=== PATIENT | female | born 1940 | race American Indian/Alaskan Native ===

== ENCOUNTER 2017-03-29 12:58 | Outpatient (CLI) | payer MEDICARE ==
--- NOTE | 2017-03-29 14:41 | Cat Scan Report ---
CT OF THE ABDOMEN AND PELVIS WITHOUT CONTRAST HISTORY: Flank pain. TECHNIQUE: Helical CT without contrast. Sagittal and coronal reformatted images. FINDINGS: Within the limits of a noncontrast exam, the abdominal and pelvic viscera are within normal limits. The liver, biliary system, pancreas, spleen, kidneys, adrenal glands and bladder are unremarkable. The gallbladder has been surgically removed. The bowel loops are normal caliber and wall thickness. Normal appendix. The aorta is normal caliber. No ascites, bulky adenopathy or inflammatory changes. Hysterectomy has been performed. Right hip replacement generates mild artifact in the pelvis. The lung bases are clear. Normal heart size. No suspicious bony lesion. A moderate hiatal hernia is identified. IMPRESSION: No nephrolithiasis or hydronephrosis is appreciated. Surgical changes as described. Hiatal hernia. No acute process detected.
== END 2017-03-29 12:59 | disposition home or self-care (01) ==
LOC: CT 12:58
PROVIDERS: ATTEND Urology
DX: K44.9 Diaphragmatic hernia without obstruction or gangrene (principal); Z90.49 Acquired absence of other specified parts of digestive tract; Z96.641 Presence of right artificial hip joint
CPT/HCPCS: 74176

== ENCOUNTER 2017-12-10 08:10 | Outpatient (CLI) | payer MEDICARE ==
--- NOTE | 2017-12-10 09:07 | Mammography Report ---
BILATERAL MAMMOGRAM: FINDINGS: The breasts are almost entirely fat (<25% glandular). No mass, distortion, suspicious calcification, or skin change is seen. No significant change compared to prior examination in March 2014. CAD was utilized. IMPRESSION: Negative mammogram. There is no mammographic evidence of malignancy. RECOMMENDATION: Follow-up per ACS guidelines. BI-RADS CATEGORY: 1 = Negative ACR BI-RADS MAMMOGRAPHIC CODES: 0 = Needs additional imaging evaluation; 1 = Negative; 2 = Benign; 3 = Probably benign; 4 = Suspicious; 5 = Malignant; 6 = Known biopsy-proven malignancy COMMENT: 1. Dense breast tissue, i.e., adenosis, fibrocystic changes, etc., may obscure an underlying neoplasm. 2. Approximately 10% of cancers are not detected with mammography. 3. A negative mammography report should not delay biopsy if a clinically suspicious mass is present. COMMENT: Patient follow-up letters are generated in [employer].
== END 2017-12-10 08:11 | disposition home or self-care (01) ==
LOC: MAMMO 08:10
PROVIDERS: ATTEND Internal Medicine
DX: Z12.31 Encounter for screening mammogram for malignant neoplasm of breast (principal)
CPT/HCPCS: 77067

== ENCOUNTER 2018-11-24 12:32 | Inpatient (IN) | payer MEDICARE ==
--- NOTE | 2018-11-24 12:48 | Emergency Department Report ---
Blank Doc - Documentation Documentation: pt was seen by PCP states she was having SOB sent to ED for evaluation states she has been feeling SOB for 2-3 weeks no cough no fever no CP PMHx of bronchitis PMHx of HTN, states she thinks she took her medication today but is not sure BP in triage 208/104
--- NOTE | 2018-11-24 13:42 | XRay Report ---
ROUTINE CHEST, TWO VIEWS: HISTORY: Shortness of breath. Borderline to mild cardiomegaly. Mild central pulmonary venous congestion is identified. The lungs are generally clear. No evidence for infiltrate, pleural effusion or pneumothorax. The bony structures are grossly intact. IMPRESSION: Borderline heart size. Mild central pulmonary venous congestion.
[2018-11-24 13:44] LABS: Basophils % (Auto) 0.7 % (0.0-1.8); Eosinophils # (Auto) 0.1 K/mm3 (0.0-0.4); Eosinophils % (Auto) 1.8 % (0.0-4.3); Hematocrit 43.5 % (30.3-42.9); Hemoglobin 14.6 gm/dl (10.1-14.3); Lymphocytes % (Auto) 24.2 % (13.4-35.0); Mean Corpuscular HGB Conc 34 % (30-34); Mean Corpuscular Volume 101 fl (79-97); Monocytes # (Auto) 0.3 K/mm3 (0.0-0.8); Monocytes % (Auto) 8.3 % (0.0-7.3); Platelet Count 239 K/mm3 (140-440); Red Blood Count 4.29 M/mm3 (3.65-5.03); Red Cell Distribution Width 13.5 % (13.2-15.2)
[2018-11-24 14:07] LABS: BUN/Creatinine Ratio 13; Blood Urea Nitrogen 8 mg/dL (7-17); Calcium 9.7 mg/dL (8.4-10.2); Hemolysis Index 13
[2018-11-24] MEDS ORDERED: NORMODYNE IV ONE (15:16)
[2018-11-24] MEDS ORDERED: LASIX IV ONE (15:16)
--- NOTE | 2018-11-24 15:23 | Emergency Department Report ---
ED General Adult HPI - General Chief complaint: High BP Stated complaint: CAROLYN Time Seen by Provider: 11/24/18 12:46 Source: patient, EMS Mode of arrival: Wheelchair Limitations: No Limitations - History of Present Illness Initial comments: Patient is 78 years old female with history of hypertension. Patient presented to the ER complaining of 3 week history of shortness of breath. Patient found to have a blood pressure of 234/126. Patient denied any chest pain. Patient denied headache, weakness numbness or tingling sensation. Patient denied any fever, chills, neck pain, abdominal pain, nausea or vomiting. -: week(s) - Related Data Allergies Allergy/AdvReac Type Severity Reaction Status Date / Time pentazocine [From Talwin] AdvReac Swelling Verified 11/24/18 12:39 ED Review of Systems ROS: Stated complaint: CAROLYN Other details as noted in HPI Comment: All other systems reviewed and negative Constitutional: denies: chills, fever Respiratory: orthopnea, shortness of breath, SOB with exertion, SOB at rest. denies: cough, wheezing Cardiovascular: denies: chest pain, palpitations Gastrointestinal: denies: abdominal pain, nausea, vomiting, diarrhea, constipation, hematemesis, melena, hematochezia Musculoskeletal: denies: back pain Neurological: denies: headache, weakness, numbness, paresthesias, confusion, abnormal gait ED Past Medical Hx - Past Medical History Hx Hypertension: Yes - Surgical History Additional Surgical History: KNEE AND HIP REPLACEMENT - Social History Smoking Status: Never Smoker ED Physical Exam - General Limitations: No Limitations General appearance: alert, in no apparent distress, anxious - Head Head exam: Present: atraumatic, normocephalic, normal inspection - Eye Eye exam: Present: normal appearance, PERRL - ENT ENT exam: Present: normal exam, normal orophraynx, mucous membranes moist - Neck Neck exam: Present: normal inspection, full ROM. Absent: tenderness, meningismus, lymphadenopathy, thyromegaly - Respiratory Respiratory exam: Present: normal lung sounds bilaterally. Absent: respiratory distress, wheezes, rales, rhonchi, chest wall tenderness, accessory muscle use, decreased breath sounds, prolonged expiratory - Cardiovascular Cardiovascular Exam: Present: regular rate, normal rhythm, normal heart sounds - GI/Abdominal GI/Abdominal exam: Present: soft, normal bowel sounds. Absent: distended, tenderness, guarding, rebound, rigid, organomegaly, mass, bruit, pulsatile mass, hernia - Extremities Exam Extremities exam: Present: normal inspection, full ROM, normal capillary refill. Absent: pedal edema, calf tenderness - Back Exam Back exam: Present: normal inspection, full ROM. Absent: CVA tenderness (R), CV A tenderness (L), muscle spasm, paraspinal tenderness, vertebral tenderness - Neurological Exam Neurological exam: Present: alert, oriented X3, CN II-XII intact, normal gait, reflexes normal - Skin Skin exam: Present: warm, intact, normal color ED Course Vital Signs 11/24/18 11/24/18 11/24/18 12:59 15:09 15:15 Temperature 98.1 F Pulse Rate 72 81 Respiratory 16 18 Rate Blood Pressure 120/70 249/127 Blood Pressure [Right] O2 Sat by Pulse 98 88 100 Oximetry 11/24/18 11/24/18 11/24/18 15:20 15:31 15:45 Temperature Pulse Rate 77 68 Respiratory 16 9 L 13 Rate Blood Pressure 249/127 216/96 Blood Pressure [Right] O2 Sat by Pulse 98 100 Oximetry 11/24/18 11/24/18 11/24/18 16:01 16:15 16:31 Temperature Pulse Rate 64 66 74 Respiratory 23 18 Rate Blood Pressure 216/96 184/94 184/94 Blood Pressure [Right] O2 Sat by Pulse 100 98 Oximetry 11/24/18 11/24/18 11/24/18 17:01 17:31 18:15 Temperature Pulse Rate 63 66 Respiratory 25 H 25 H Rate Blood Pressure 186/97 188/91 191/86 Blood Pressure [Right] O2 Sat by Pulse 99 100 90 Oximetry 11/24/18 11/24/18 11/24/18 18:31 18:35 18:45 Temperature Pulse Rate 71 66 82 Respiratory 12 12 17 Rate Blood Pressure 188/91 209/99 164/76 Blood Pressure 209/99 [Right] O2 Sat by Pulse 99 99 100 Oximetry ED Medical Decision Making - Lab Data Result diagrams: 11/24/18 13:31 11/24/18 13:31 - EKG Data -: EKG Interpreted by Nm EKG shows normal: sinus rhythm Rate: normal - EKG Data Interpretation: no acute changes - Radiology Data Radiology results: report reviewed Chest x-ray showed cardiomegaly and pulmonary congestion. - Medical Decision Making Patient is 78 years old female with history of hypertension. Patient presented to the ER complaining of 3 week history of shortness of breath. Patient found to have a blood pressure of 234/126. Patient denied any chest pain. Patient denied headache, weakness numbness or tingling sensation. Patient denied any fever, chills, neck pain, abdominal pain, nausea or vomiting. Patient received labetalol 20 mg IV and Lasix 40 IV with minimal improvement in the low pressure. Patient received hydralazine. Labs reviewed and is un remarkable. CTA chest is negative for pulmonary embolism. I discussed the patient is Dr. Thorpe, he agreed to admit the patient to medical service for further management. Critical Care Time: Yes Critical care time in (mins) excluding proc time.: 30 Critical care attestation.: If time is entered above; I have spent that time in minutes in the direct care of this critically ill patient, excluding procedure time. ED Disposition Clinical Impression: Shortness of breath, Hypertensive emergency Disposition: DC-09 OP ADMIT IP TO THIS HOSP Is pt being admited?: Yes Condition: Stable Instructions: Hypertension (ED) Referrals: JIMMY PENA MD [Primary Care Provider] - 3-5 Days
[2018-11-24 16:40] LABS: Partial Thromboplastin Time 27.6 Sec. (24.2-36.6)
[2018-11-24] MEDS ORDERED: APRESOLINE IV ONE (18:27)
--- NOTE | 2018-11-24 18:42 | Cat Scan Report ---
PROCEDURE: CT ANGIO CHEST TECHNIQUE: CT examination of the chest after IV contrast. Multiplanar angiographic image post processing. CT DOSE LENGTH PRODUCT: 713.5 mGycm HISTORY: SOB, ELEVATED D-DIMER COMPARISONS: Abdomen CT 03/29/2017 . FINDINGS: Slight cardiomegaly without pericardial effusion. Slight coronary artery calcification. Intact normal caliber thoracic aorta with moderate calcified plaque. Large hiatal hernia containing abdominal fat and approximately 50% of the stomach. The visualized pulmonary arteries are diffusely patent bilaterally. There is no filling defect to sug gest PE. Nonspecific 18 mm left adrenal nodule. Average CT density is 49 with IV contrast. Consider follow-up adrenal CT without IV contrast to further characterize Degenerative change in the regional skeleton. No acute fracture. No pneumothorax or pleural effusion. No focal pulmonary consolidation. Stable slight pulmonary scarri ng along the fissures. IMPRESSION: 18 mm nonspecific left adrenal nodule. Consider follow-up thin section adrenal CT without IV contrast to further characterize Slight cardiomegaly and coronary artery calcification Large hiatal hernia containing abdominal fat and approximately 50% of the stomach Stable slight pulmonary scarring along the anterior inferior fissures No CT evidence of pulmonary arterial embolic disease This document is electronically signed by Tab Anaya MD., November 24 2018 06:41:06 PM ET
[2018-11-24] MEDS ORDERED: PROAIR IH PRN (20:21)
[2018-11-24] MEDS ORDERED: APRESOLINE IV PRN (20:23)
[2018-11-24] MEDS ORDERED: SODIUM CHLORIDE FLUSH SYRINGE 10 ML IV PRN (20:47)
[2018-11-24] MEDS ORDERED: PROVENTIL IH PRN ×2 (20:47→20:51)
[2018-11-24] MEDS ORDERED: TYLENOL PO PRN (20:47)
[2018-11-24] MEDS ORDERED: ZOFRAN IV PRN (20:47)
[2018-11-24] MEDS ORDERED: K-DUR PO ONE (20:49)
[2018-11-24] MEDS ORDERED: K-DUR PO SCH (21:00)
[2018-11-24] MEDS ORDERED: NACL 0.9% 1000 ML 1,000 ML IV SCH (21:00)
--- NOTE | 2018-11-24 21:49 | History and Physical Report ---
History of Present Illness Date of examination: 11/24/18 Date of admission: 11/24/18 19:41 Chief complaint: Hypertensive urgency, shortness of breath History of present illness: 78-year-old -I[place] female with history of hypertension, asthma, GERD who presents to [facility] with complaints of shortness of breath for the past 3 weeks. Patient states that she has been experiencing dyspnea at rest and with exertion for the past 3 weeks. Patient stated that she has not taken her blood pressure medicines for the last "couple" of days. She attributes this to a misunderstanding with her PCP. She thought that she was instructed not to take the medicine, because it was on recall. Denies cough, sputum production, hemoptysis, fever, chills, visual disturbances, gait dysfunction, diaphoresis, or chest pain Past History Past Medical History: hypertension, other (asthma,) Past Surgical History: Other (knee surgery, hip replacement) Social history: , lives with family Family history: no significant family history Medications and Allergies Allergies Allergy/AdvReac Type Severity Reaction Status Date / Time pentazocine [From Talwin] AdvReac Swelling Verified 11/24/18 12:39 Home Medications Medication Instructions Recorded Confirmed Last Taken Type ALBUTEROL Inhaler (OR & NICU) 2 puff IH BID PRN 11/24/18 11/24/18 Unknown History [Proair] Fesoterodine Fumarate [Toviaz] 4 mg PO DAILY 11/24/18 11/24/18 Unknown History Losartan [Cozaar] 50 mg PO DAILY 11/24/18 11/24/18 Unknown History Pantoprazole [Protonix] 40 mg PO DAILY 11/24/18 11/24/18 Unknown History Potassium Chloride [K-Dur] 10 meq PO DAILY 11/24/18 11/24/18 Unknown History amLODIPine [Norvasc] 10 mg PO DAILY 11/24/18 11/24/18 Unknown History hydroCHLOROthiazide [HCTZ] 25 mg PO DAILY 11/24/18 11/24/18 Unknown History Active Meds: Active Medications Acetaminophen (Tylenol) 650 mg PO Q4H PRN PRN Reason: Pain MILD(1-3)/Fever >100.5/GOETZ Albuterol (Proventil) 2.5 mg IH Q3HRT PRN PRN Reason: Shortness Of Breath Amlodipine Besylate (Norvasc) 10 mg PO DAILY [facility] Hydralazine HCl (Apresoline) 10 mg IV Q3H PRN PRN Reason: Blood Pressure Hydrochlorothiazide (Hctz) 25 mg PO DAILY [facility] Sodium Chloride (Nacl 0.9% 1000 Ml) 1,000 mls @ 100 mls/hr IV DIRECT COLLIN Stop: 11/25/18 11:00 Losartan Potassium (Cozaar) 100 mg PO DAILY [facility] Miscellaneous Medication (Fesoterodine Fumarate [Toviaz]) 4 mg PO DAILY [facility] Ondansetron HCl (Zofran) 4 mg IV Q8H PRN PRN Reason: Nausea And Vomiting Pantoprazole Sodium (Protonix) 40 mg PO DAILY [facility] Potassium Chloride (K-Dur) 10 meq PO DAILY [facility] Sodium Chloride (Sodium Chloride Flush Syringe 10 Ml) 10 ml IV BID [facility] Sodium Chloride (Sodium Chloride Flush Syringe 10 Ml) 10 ml IV PRN PRN PRN Reason: LINE FLUSH Review of Systems All systems: negative (reviewed an additional remarkable complaints except as noted below) Cardiovascular: orthopnea, shortness of breath, dyspnea on exertion Respiratory: shortness of breath, dyspnea on exertion Exam - Physical Exam Narrative exam: Physical exam General appearance: Present: Mild distress, alert and oriented 3, older adult female - EENT Eyes: Present: PERRL, EOM intact ENT: hearing intact, normal dentition - Neck Neck: Present: supple, normal ROM - Respiratory Respiratory effort: Slightly labored with occasional pursed lip breathing Respiratory: bilateral: diminished (bases) - Cardiovascular Heart rate: 71 (bpm) Rhythm: Sinus rhythm regular Heart Sounds: Present: S1 & S2. Absent: rub, click - Extremities Extremities: no ischemia, pulses intact, - Peripheral Assessment Peripheral Pulses: within normal limits - Abdominal General gastrointestinal: soft, non-tender, normal bowel sounds - Integumentary Integumentary: Present: warm, dry - Musculoskeletal Musculoskeletal: Able to move all extremities - Neurological Neurological: CNII-XII intact - Psychiatric Psychiatric: cooperative - Constitutional Vitals: Temp Pulse Resp BP Pulse Ox 98.3 F 80 18 169/83 99 11/24/18 21:02 11/24/18 21:02 11/24/18 21:02 11/24/18 21:02 11/24/18 21:02 Results - Labs CBC & Chem 7: 11/24/18 13:31 11/24/18 13:31 Labs: Laboratory Last Values WBC 4.0 K/mm3 (4.5-11.0) L 11/24/18 13:31 RBC 4.29 M/mm3 (3.65-5.03) 11/24/18 13:31 Hgb 14.6 gm/dl (10.1-14.3) H 11/24/18 13:31 Hct 43.5 % (30.3-42.9) H 11/24/18 13:31 MCV 101 fl (79-97) H 11/24/18 13:31 MCH 34 pg (28-32) H 11/24/18 13:31 MCHC 34 % (30-34) 11/24/18 13:31 RDW 13.5 % (13.2-15.2) 11/24/18 13:31 Plt Count 239 K/mm3 (140-440) 11/24/18 13:31 Lymph % (Auto) 24.2 % (13.4-35.0) 11/24/18 13:31 [place] % (Auto) 8.3 % (0.0-7.3) H 11/24/18 13:31 Eos % (Auto) 1.8 % (0.0-4.3) 11/24/18 13:31 Baso % (Auto) 0.7 % (0.0-1.8) 11/24/18 13:31 Lymph # 1.0 K/mm3 (1.2-5.4) L 11/24/18 13:31 [place] # 0.3 K/mm3 (0.0-0.8) 11/24/18 13:31 Eos # 0.1 K/mm3 (0.0-0.4) 11/24/18 13:31 Baso # 0.0 K/mm3 (0.0-0.1) 11/24/18 13:31 Seg Neutrophils % 65.0 % (40.0-70.0) 11/24/18 13:31 Seg Neutrophils # 2.6 K/mm3 (1.8-7.7) 11/24/18 13:31 PT 13.8 Sec. (12.2-14.9) 11/24/18 15:47 INR 1.00 (0.87-1.13) 11/24/18 15:47 APTT 27.6 Sec. (24.2-36.6) 11/24/18 15:47 234.10 ng/mlDDU (0-234) H 11/24/18 15:47 Sodium 142 mmol/L (137-145) 11/24/18 13:31 Potassium 3.5 mmol/L (3.6-5.0) L 11/24/18 13:31 Chloride 98.0 mmol/L (98-107) 11/24/18 13:31 Carbon Dioxide 28 mmol/L (22-30) 11/24/18 13:31 20 mmol/L 11/24/18 13:31 BUN 8 mg/dL (7-17) 11/24/18 13:31 0.6 mg/dL (0.7-1.2) L 11/24/18 13:31 Estimated GFR > 60 ml/min 11/24/18 13:31 13 % 11/24/18 13:31 Glucose 105 mg/dL (65-100) H 11/24/18 13:31 Calcium 9.7 mg/dL (8.4-10.2) 11/24/18 13:31 NT-Pro-B Natriuret Pep 211.2 pg/mL (0-900) 11/24/18 13:31 - Imaging and Cardiology EKG: image reviewed (sinus rhythm 71 bpm) Chest x-ray: report reviewed (Borderline heart size. Mild central pulmonary venous congestion. ), image reviewed Imaging and Cardiology: CTA: No CT evidence of pulmonary arterial embolic disease Assessment and Plan Assessment and plan: 78-year-old -I[place] female with history of hypertension, asthma, GERD who presents to [facility] ED with complaints of shortness of breath for the past 3 weeks. Upon arrival to our facility patient's blood pressure was profoundly elevated at 234/136. She was given IV labetalol 20 mg. Her blood pressure re main elevated at 216/96 she was given hydralazine 20 mg IV and was responsive. CTA chest negative for PE. CXR showed mild pulmonary congestion and she was given Lasix 40 mg IV. At baseline patient does not require supplemental oxygen. Currently she is on 3 L nasal cannula with saturation of 98%. Hypertensive urgency Dehydration Dyspnea Asthma Hypokalemia History of GERD Plan: Continue supportive care Continuous telemetry monitoring Monitor BP Resume home Norvasc 10 mg daily, HCTZ 25 mg daily, Increase Losartan to 100 mg daily Start Coreg 12.5 mg twice a day IV hydralazine when necessary Continue Protonix Monitor electrolytes Daily potassium replacement Gentle hydration NS @100 ml/hr Echocardiogram pending Continue supplemental oxygen as needed Albuterol when necessary DVT PPX on Heparin and SCD's Advance Directives: No VTE prophylaxis?: Chemical Plan of care discussed with patient/family: Yes
[2018-11-24] MEDS: NORVASC PO SCH (22:48)
[2018-11-24] MEDS: HEPARIN SUB-Q SCH (22:48)
[2018-11-24] MEDS: COZAAR PO SCH (22:49)
[2018-11-24] MEDS: HCTZ PO SCH (22:50)
[2018-11-24] MEDS: PROTONIX PO SCH (22:50)
[2018-11-24] MEDS: SODIUM CHLORIDE FLUSH SYRINGE 10 ML IV SCH (22:51)
[2018-11-24] MEDS: FESOTERODINE FUMARATE 4 MG PO SCH (22:58)
[2018-11-25] MEDS: COREG PO SCH ×2 (00:39→10:19)
[2018-11-25 06:40] LABS: Basophils % (Auto) 0.6 % (0.0-1.8); Eosinophils # (Auto) 0.1 K/mm3 (0.0-0.4); Eosinophils % (Auto) 1.8 % (0.0-4.3); Hematocrit 35.4 % (30.3-42.9); Hemoglobin 11.9 gm/dl (10.1-14.3); Lymphocytes # (Auto) 0.7 K/mm3 (1.2-5.4); Lymphocytes % (Auto) 17.1 % (13.4-35.0); Mean Corpuscular HGB Conc 34 % (30-34); Mean Corpuscular Volume 102 fl (79-97); Monocytes # (Auto) 0.5 K/mm3 (0.0-0.8); Monocytes % (Auto) 12.8 % (0.0-7.3); Platelet Count 222 K/mm3 (140-440); Red Blood Count 3.46 M/mm3 (3.65-5.03); Red Cell Distribution Width 13.7 % (13.2-15.2)
[2018-11-25 07:26] LABS: BUN/Creatinine Ratio 13; Blood Urea Nitrogen 9 mg/dL (7-17); Hemolysis Index 3
[2018-11-25 08:53] VITALS: BP 135/67
[2018-11-25] MEDS ORDERED: K-DUR PO SCH (10:00)
--- NOTE | 2018-11-25 10:07 | Discharge Summary ---
Providers - Providers Date of Admission: 11/24/18 19:41 Date of discharge: 11/25/18 Attending physician: RAVINDRA POOL MD Primary care physician: JIMMY PENA Hospitalization Reason for admission: hypertensive urgency, asthma Condition: Stable Pertinent studies: Chest CTA was done; negative for PE Hospital course: 78-year-old -Italian female with history of hypertension, asthma, GERD who presents to [facility] ED with complaints of shortness of breath for the past 3 weeks. Patient states that she has been experiencing dyspnea at rest and with exertion for the past 3 weeks. Patient stated that she has not taken her blood pressure medicines for the last "couple" of days. She attributes this to a misunderstanding with her PCP. She thought that she was instructed not to take the medicine, because it was on recall. Denies cough, sputum production, hemoptysis, fever, chills, visual disturbances, gait dysfunction, diaphoresis, or chest pain. Blood pressures emergency department was 234/126. Patient was admitted to the floor or hypertensive urgency and was initially treated with IV blood pressure medications later with PO and BP was controlled. When I evaluated her in the morning patient didn't have any shortness of breath, chest pain. On examination no wheezing or edema. Patient is hemodynamically stable. Patient was discharged to home with advice to continue her medications. Disposition: TO HOME OR SELFCARE Time spent for discharge: 32 minutes - Discharge Diagnoses (1) Hypertensive emergency Status: Acute (2) Shortness of breath Status: Acute Core Measure Documentation - Palliative Care Palliative Care/ Comfort Measures: Not Applicable - Core Measures Any of the following diagnoses?: none Exam - Physical Exam Narrative exam: Not in cardiopulmonary distress. The patient is obese. Vital signs as documented. Head exam is unremarkable. No scleral icterus . Neck is without jugular venous distension, thyromegaly, or carotid bruits. Lungs are clear to auscultation. Cardiac exam reveals regular rate and Rhythm. First and second heart sounds normal. No murmurs, rubs or gallops. Abdominal exam reveals normal bowel sounds, no masses, no organomegaly and no aortic enlargement. Extremities are nonedematous and both femoral and pedal pulses are normal. 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 No focal weakness. - Constitutional Vitals: Temp Pulse Resp BP Pulse Ox 98.0 F 69 24 135/67 94 11/25/18 03:56 06/07/19 08:12 11/25/18 08:12 11/25/18 08:12 11/25/18 08:12 Plan Activity: no restrictions Weight Bearing Status: Full Weight Bearing Diet: low salt Follow up with: JIMMY PENA MD [Primary Care Provider] - 3-5 Days
[2018-11-25] MEDS: HCTZ PO SCH (10:19)
[2018-11-25] MEDS: NORVASC PO SCH (10:19)
[2018-11-25] MEDS: PROTONIX PO SCH (10:19)
[2018-11-25] MEDS: COZAAR PO SCH (10:19)
[2018-11-25] MEDS: HEPARIN SUB-Q SCH (10:20)
[2018-11-25] MEDS: SODIUM CHLORIDE FLUSH SYRINGE 10 ML IV SCH (10:20)
[2018-11-25] MEDS: FESOTERODINE FUMARATE 4 MG PO SCH (10:20)
== END 2018-11-25 12:00 | disposition home or self-care (01) | DRG 305 ==
LOC: ED 12:32 → 4A 19:41
PROVIDERS: ADMIT Internal Medicine; ATTEND Internal Medicine
DX: I16.1 Hypertensive emergency (principal); E87.6 Hypokalemia; J45.909 Unspecified asthma, uncomplicated; K21.9 Gastro-esophageal reflux disease without esophagitis; E86.0 Dehydration; I10 Essential (primary) hypertension; Z79.899 Other long term (current) drug therapy
CPT/HCPCS: 36415; 71046; 71275; 80048; 83880; 85025; 85379; 85610; 85730; 93005; 93010; G0378; J0360; J1644; J1940; J3246; J7030; Q9967

== ENCOUNTER 2019-08-21 12:29 | Outpatient (CLI) | payer MEDICARE ==
--- NOTE | 2019-08-21 14:02 | XRay Report ---
CHEST 2 VIEWS INDICATION: ASTHMA WITH ACUTE EXACERBATION. COMPARISON: 11/24/2018 FINDINGS: Support devices: None. Heart: Mild cardiomegaly unchanged since the last exam Pulmonary vasculature: Mild prominence of the upper lobe pulmonary vessels. Lungs/pleura: No acute air space or interstitial disease. Mild left lower lobe scar with stable mild elevation of the left hemidiaphragm. No pneumothorax. Additional findings: None. IMPRESSION: 1. No acute findings. 2. No CHF or pneumonia. Signer Name: Dwight Victor MD Signed: 08/21/2019 1:57 PM Workstation Name: [id number]
== END 2019-08-21 12:30 | disposition home or self-care (01) ==
LOC: XRAY 12:29
PROVIDERS: ATTEND Internal Medicine
DX: I51.7 Cardiomegaly (principal); J45.998 Other asthma
CPT/HCPCS: 71046

== ENCOUNTER 2021-01-27 08:46 | Outpatient (CLI) | payer MEDICARE ==
[2021-01-27 09:40] LABS: Blood Urea Nitrogen 20 mg/dL (7-17)
--- NOTE | 2021-01-27 10:54 | Cat Scan Report ---
CTA CHEST WITH IV CONTRAST INDICATION: CHEST PAIN. TECHNIQUE: Axial CT images were obtained through the chest after injection of IV contrast. 3 plane MIP reconstru ctions were produced. All CT scans at this location are performed using CT dose reduction for ALARA b y means of automated exposure control. COMPARISON: CTA 09/16/2019 FINDINGS: Pulmonary Arteries: No pulmonary emboli. Thoracic Aorta: No acute abnormality. Atherosclerotic calcification is again noted. Heart: Moderate coronary artery calcification is again noted. Lungs: No acute air space or interstitial disease. Pleura: No pleural effusion. No pneumothorax. Lymph Nodes: No significant adenopathy. Additional Findings: Large hiatal hernia with intrathoracic stomach again noted. Upper Abdomen: No acute findings. Left adrenal nodule is unchanged. Skeletal Structures: No significant osseous abnormality. IMPRESSION: 1. No CT evidence for pulmonary embolism. 2. No acute findings. 3. Incidental findings as above. Signer Name: Chandan Urbina MD Signed: 01/27/2021 10:50 AM Workstation Name: [id number]
== END 2021-01-27 08:47 | disposition home or self-care (01) ==
LOC: CT 08:46
PROVIDERS: ATTEND Internal Medicine Critical Care Medicine
DX: R06.02 Shortness of breath (principal); I25.10 Atherosclerotic heart disease of native coronary artery without angina pectoris; K44.9 Diaphragmatic hernia without obstruction or gangrene; D86.9 Sarcoidosis, unspecified; R07.9 Chest pain, unspecified; R09.02 Hypoxemia; J44.9 Chronic obstructive pulmonary disease, unspecified
CPT/HCPCS: 36415; 71275; 82565; 84520; Q9967

== ENCOUNTER 2021-07-14 14:32 | Inpatient (IN) | payer MEDICARE ==
--- NOTE | 2021-07-14 15:31 | Emergency Department Report ---
HPI - General Chief Complaint: Dyspnea/Respdistress Time Seen by Provider: 07/14/21 15:06 - HPI HPI: Room 24 The patient is a 80-year-old female present with a chief complaint of shortness of breath. The patient states she has exhibited shortness of breath and dyspnea on exertion for months. Patient states she has a rare cough. Patient admits to orthopnea times "years.". Patient also admits to bilateral lower extremity edema for which she takes "a fluid pill" but denies having history of congestive heart failure. Patient has a history of sarcoidosis and states she is on 2 L O2 nasal cannula as needed at home. Patient states she has been vaccinated against Covid including her booster. Patient denies chest pain, fever or nausea/vomiting. ED Past Medical Hx - Past Medical History Hx Hypertension: Yes Hx GERD: Yes Additional medical history: Sarcoidosis, venous stasis ulcer - Surgical History Hx Cholecystectomy: Yes (1993) Additional Surgical History: Hernia surgery 1994 hysterectomy 1980, right hip replacement 1989, right hip revision, total left knee replacement 2012 - Family History Family history: no significant - Social History Smoking Status: Never Smoker Substance Use Type: None (Denies illicit drug use), Alcohol (Occasional) - Medications Home Medications: Home Medications Medication Instructions Recorded Confirmed Last Taken Type Albuterol Mdi (or & Nicu Only) 2 puff IH BID PRN 11/24/18 11/24/18 Unknown History [ProAir HFA Inhaler] Fesoterodine Fumarate [Toviaz] 4 mg PO DAILY 11/24/18 11/24/18 Unknown History Losartan [Cozaar] 50 mg PO DAILY 11/24/18 11/24/18 Unknown History Pantoprazole [Protonix TAB] 40 mg PO DAILY 11/24/18 11/24/18 Unknown History Potassium Chloride [K-Dur] 10 meq PO DAILY 11/24/18 11/24/18 Unknown History amLODIPine 10 mg PO DAILY 11/24/18 11/24/18 Unknown History hydroCHLOROthiazide [HCTZ] 25 mg PO DAILY 11/24/18 11/24/18 Unknown History Albuterol Mdi (or & Nicu Only) 2 puff IH Q4HR PRN #1 inh 09/16/19 Unknown Rx [ProAir HFA Inhaler] Inhaler, Assist Devices [Space 1 each MC PRN PRN #1 spacer 09/16/19 Unknown Rx Chamber Plus] Prednisone [predniSONE 10 mg 10 mg PO .TAPER #1 tab.ds.pk 09/16/19 Unknown Rx (6-Day Pack, 21 Tabs)] ED Review of Systems ROS: Stated complaint: SHORTNESS OF BREATH/CHEST PAIN Other details as noted in HPI Constitutional: denies: fever Eyes: denies: eye pain ENT: denies: throat pain Respiratory: orthopnea, shortness of breath, SOB with exertion Cardiovascular: dyspnea on exertion, orthopnea. denies: chest pain Endocrine: no symptoms reported Gastrointestinal: denies: abdominal pain, nausea, vomiting Genitourinary: denies: dysuria Musculoskeletal: denies: back pain Neurological: denies: headache Physical Exam - Physical Exam Vital Signs: Vital Signs 07/14/21 07/14/21 07/14/21 14:39 14:45 15:01 Pulse Rate 84 85 84 Respiratory 14 12 15 Rate Blood Pressure 195/89 231/104 O2 Sat by Pulse 94 92 97 Oximetry Physical Exam: GENERAL: The patient is well-developed well-nourished female lying on stretcher not appearing to be in acute. [] HEENT: Normocephalic. Atraumatic. Extraocular motions are intact. Patient has moist mucous membranes. NECK: Supple. Trachea midline CHEST/LUNGS: Coarse breath sounds. There is no respiratory distress noted. HEART/CARDIOVASCULAR: Regular. There is no tachycardia. There is no gallop rub or murmur. ABDOMEN: Abdomen is soft, nontender. Patient has normal bowel sounds. There is no abdominal distention. SKIN: There is no rash. There is 1-2+ bilateral lower extremity pitting edema. There is no diaphoresis. NEURO: The patient is awake, alert, and oriented. The patient is cooperative. The patient has no focal neurologic deficits. The patient has normal speech. GCS 15 MUSCULOSKELETAL: There is no evidence of acute injury. ED Course Vital Signs 07/14/21 07/14/21 07/14/21 14:39 14:45 15:01 Pulse Rate 84 85 84 Respiratory 14 12 15 Rate Blood Pressure 195/89 231/104 O2 Sat by Pulse 94 92 97 Oximetry ED Medical Decision Making - Lab Data Result diagrams: 07/14/21 15:50 07/14/21 15:50 - EKG Data -: EKG Interpreted by Me EKG shows normal: sinus rhythm Rate: normal - EKG Data When compared to previous EKG there are: previous EKG unavailable Interpretation: other (No ischemic changes seen) - Radiology Data Radiology results: report reviewed (Chest x-ray), image reviewed (Chest x-ray) interpreted by me: Chest x-ray-no definite focal infiltrates, no pneumothorax [facility] [address] [place] [address] XRay Report Signed Patient: OSCAR CAM MR#: [id number] 8 : 1940 Acct:[id number] Age/Sex: 80 / F ADM Date: 07/14/21 Loc: ED Attending Dr: Ordering Physician: MELIZA SCHERER MD Date of Service: 07/14/21 Procedure(s): XR chest 1V ap Accession Number(s): [id number] cc: MELIZA SCHERER MD Fluoro Time In Minutes: CHEST 1 VIEW 07/14/2021 3:12 PM INDICATION / CLINICAL INFORMATION: Dyspn ea on exertion. COMPARISON: 09/15/2019 FINDINGS: SUPPORT DEVICES: None. HEART / MEDIASTINUM: No significant abnormality. LUNGS / PLEURA: No significant pulmonary or pleural abnormality. No pneumothorax. ADDITIONAL FINDINGS: No significant additional findings. IMPRESSION: 1. No acute findings. Signer Name: Juan Martinez DO Signed: 07/14/2021 4:15 PM Workstation Name: [id number] Transcribed By: LOKI Dictated By: JUAN MARTINEZ DO Electronically Authenticated By: JUAN MARTINEZ DO Signed Date/Time: 07/14/211614 DD/ 14 TD/TT: Print Cancel - Medical Decision Making Patient tachypneic and desats to 90% on room air when walking. Will admit for further management - Differential Diagnosis CHF, sarcoidosis, pulmonary edema, restrictive lung disease, symptomatic an Critical care attestation.: If time is entered above; I have spent that time in minutes in the direct care of this critically ill patient, excluding procedure time. ED Disposition Clinical Impression: Shortness of breath, Dyspnea on exertion, Hypoxia Disposition: ADMITTED INPATIENT Is pt being admited?: Yes Does the pt Need Aspirin: No Condition: Fair Time of Disposition: 18:06 (Hospitalist called (Dr. Thorpe))
--- NOTE | 2021-07-14 16:20 | XRay Report ---
CHEST 1 VIEW 07/14/2021 3:12 PM INDICATION / CLINICAL INFORMATION: Dyspnea on exertion. COMPARISON: 09/15/2019 FINDINGS: SUPPORT DEVICES: None. HEART / MEDIASTINUM: No significant abnormality. LUNGS / PLEURA: No significant pulmonary or pleural abnormality. No pneumothorax. ADDITIONAL FINDINGS: No significant additional findings. IMPRESSION: 1. No acute findings. Signer Name: Juan Hernandez DO Signed: 07/14/2021 4:15 PM Workstation Name: [id number]
[2021-07-14 16:43] LABS: Basophils % (Auto) 1.3 % (0.0-1.8); Eosinophils # (Auto) 0.1 K/mm3 (0.0-0.4); Eosinophils % (Auto) 2.7 % (0.0-4.3); Hematocrit 28.3 % (30.3-42.9); Hemoglobin 8.9 gm/dl (10.1-14.3); Lymphocytes # (Auto) 0.7 K/mm3 (1.2-5.4); Lymphocytes % (Auto) 22.7 % (13.4-35.0); Mean Corpuscular HGB Conc 31 % (30-34); Mean Corpuscular Volume 89 fl (79-97); Monocytes # (Auto) 0.4 K/mm3 (0.0-0.8); Monocytes % (Auto) 13.2 % (0.0-7.3); Platelet Count 251 K/mm3 (140-440); Red Blood Count 3.17 M/mm3 (3.65-5.03); Red Cell Distribution Width 15.8 % (13.2-15.2)
[2021-07-14] MEDS ORDERED: FUROSEMIDE 40 MG/4 ML INJ IV ONE (17:11)
[2021-07-14] MEDS ORDERED: cloNIDine 0.1 MG TAB PO ONE (17:14)
[2021-07-14 17:15] LABS: Alanine Aminotransferase 7 units/L (7-56); Albumin 4.3 g/dL (3.9-5); Blood Urea Nitrogen 12 mg/dL (7-17); Calcium 9.9 mg/dL (8.4-10.2); Hemolysis Index 11
[2021-07-14 17:16] LABS: BUN/Creatinine Ratio 17
[2021-07-14] MEDS ORDERED: IPRATROPIUM/ALBUTEROL SULFATE 3 ML AMPUL.NEB IH ONE (18:06)
--- NOTE | 2021-07-14 22:09 | History and Physical Report ---
History of Present Illness Date of examination: 07/14/21 Date of admission: Chief complaint: Shortness of breath for 1 day History of present illness: 80-year-old female comes in for increasing shortness of breath. Shortness of breath and dyspnea on exertion for months. Patient also admits to orthopnea. Patient also has bilateral lower extremity swelling. Patient has history of sarcoidosis. Denies CHF. Patient is on 2 L of nasal cannula oxygen at home. Patient has been vaccinated against Covid including a booster. No fever or chills. In the emergency room saturations were low blood improved with oxygen supplementation. - Past Medical History --Hypertension: Yes --GERD: Yes --Additional medical history: Sarcoidosis, venous stasis ulcer - Surgical History --Cholecystectomy: Yes (1993) --Additional Surgical History: Hernia surgery 1994 hysterectomy 1980, right hip replacement 1989, right hip revision, total left knee replacement 2012 - Family History --Family history: no significant - Social History --Smoking Status: Never Smoker --Substance Use Type: None (Denies illicit drug use), Alcohol (Occasional) - Medications --Home Medications: Home Medications Medication Instructions Recorded Confirmed Last Taken Type Albuterol Mdi (or & Nicu Only) 2 puff IH BID PRN 11/24/18 11/24/18 Unknown History [ProAir HFA Inhaler] Fesoterodine Fumarate [Toviaz] 4 mg PO DAILY 11/24/18 11/24/18 Unknown History Losartan [Cozaar] 50 mg PO DAILY 11/24/18 11/24/18 Unknown History Pantoprazole [Protonix TAB] 40 mg PO DAILY 11/24/18 11/24/18 Unknown History Potassium Chloride [K-Dur] 10 meq PO DAILY 11/24/18 11/24/18 Unknown History amLODIPine 10 mg PO DAILY 11/24/18 11/24/18 Unknown History hydroCHLOROthiazide [HCTZ] 25 mg PO DAILY 11/24/18 11/24/18 Unknown History Albuterol Mdi (or & Nicu Only) 2 puff IH Q4HR PRN #1 inh 09/16/19 Unknown Rx [ProAir HFA Inhaler] Inhaler, Assist Devices [Space 1 each MC PRN PRN #1 spacer 09/16/19 Unknown Rx Chamber Plus] Prednisone [predniSONE 10 mg 10 mg PO .TAPER #1 tab.ds.pk 09/16/19 Unknown Rx (6-Day Pack, 21 Tabs)] Review of Systems ROS: Stated complaint: SHORTNESS OF BREATH/CHEST PAIN Other details as noted in HPI Constitutional: denies: fever Eyes: denies: eye pain ENT: denies: throat pain Respiratory: orthopnea, shortness of breath, SOB with exertion Cardiovascular: dyspnea on exertion, orthopnea. denies: chest pain Endocrine: no symptoms reported Gastrointestinal: denies: abdominal pain, nausea, vomiting Genitourinary: denies: dysuria Musculoskeletal: denies: back pain Neurological: denies: headache Medications and Allergies Allergies Allergy/AdvReac Type Severity Reaction Status Date / Time pentazocine [From Viri] AdvReac Swelling Verified 11/24/18 12:39 Home Medications Medication Instructions Recorded Confirmed Last Taken Type Albuterol Mdi (or & Nicu Only) 2 puff IH BID PRN 11/24/18 11/24/18 Unknown History [ProAir HFA Inhaler] Fesoterodine Fumarate [Toviaz] 4 mg PO DAILY 11/24/18 11/24/18 Unknown History Losartan [Cozaar] 50 mg PO DAILY 11/24/18 11/24/18 Unknown History Pantoprazole [Protonix TAB] 40 mg PO DAILY 11/24/18 11/24/18 Unknown History Potassium Chloride [K-Dur] 10 meq PO DAILY 11/24/18 11/24/18 Unknown History amLODIPine 10 mg PO DAILY 11/24/18 11/24/18 Unknown History hydroCHLOROthiazide [HCTZ] 25 mg PO DAILY 11/24/18 11/24/18 Unknown History Albuterol Mdi (or & Nicu Only) 2 puff IH Q4HR PRN #1 inh 09/16/19 Unknown Rx [ProAir HFA Inhaler] Inhaler, Assist Devices [Space 1 each MC PRN PRN #1 spacer 09/16/19 Unknown Rx Chamber Plus] Prednisone [predniSONE 10 mg 10 mg PO .TAPER #1 tab.ds.pk 09/16/19 Unknown Rx (6-Day Pack, 21 Tabs)] Exam - Constitutional Vitals: Temp Pulse Resp BP Pulse Ox 98.7 F 85 12 169/72 98 07/14/21 18:44 07/14/21 18:43 07/14/21 16:45 07/14/21 18:43 07/14/21 16:45 General appearance: Present: mild distress, well-nourished - EENT Eyes: Present: PERRL ENT: hearing intact, clear oral mucosa - Neck Neck: Present: supple, normal ROM - Respiratory Respiratory effort: normal Respiratory: bilateral: CTA - Cardiovascular Heart rate: 78 Rhythm: regular Heart Sounds: Present: S1 & S2. Absent: rub, click - Extremities Extremities: pulses symmetrical, No edema Peripheral Pulses: within normal limits - Abdominal General gastrointestinal: Present: soft, non-tender, non-distended, normal bowel sounds Female genitourinary: Present: normal - Integumentary Integumentary: Present: clear, warm, dry - Musculoskeletal Musculoskeletal: gait normal, strength equal bilaterally - Psychiatric Psychiatric: appropriate mood/affect, intact judgment & insight - Neurologic Neurologic: CNII-XII intact, moves all extremities HEART Score - HEART Score Troponin: Troponin T < 0.010 ng/mL (0.00-0.029) 07/14/21 15:50 Results - Labs CBC & Chem 7: 07/15/21 04:01 07/15/21 04:01 Labs: Laboratory Last Values WBC 3.2 K/mm3 (4.5-11.0) L 07/14/21 15:50 RBC 3.17 M/mm3 (3.65-5.03) L 07/14/21 15:50 Hgb 8.9 gm/dl (10.1-14.3) L 07/14/21 15:50 Hct 28.3 % (30.3-42.9) L 07/14/21 15:50 MCV 89 fl (79-97) 07/14/21 15:50 MCH 28 pg (28-32) 07/14/21 15:50 MCHC 31 % (30-34) 07/14/21 15:50 RDW 15.8 % (13.2-15.2) H 07/14/21 15:50 Plt Count 251 K/mm3 (140-440) 07/14/21 15:50 Lymph % (Auto) 22.7 % (13.4-35.0) 07/14/21 15:50 [place] % (Auto) 13.2 % (0.0-7.3) H 07/14/21 15:50 Eos % (Auto) 2.7 % (0.0-4.3) 07/14/21 15:50 Baso % (Auto) 1.3 % (0.0-1.8) 07/14/21 15:50 Lymph # (Auto) 0.7 K/mm3 (1.2-5.4) L 07/14/21 15:50 [place] # (Auto) 0.4 K/mm3 (0.0-0.8) 07/14/21 15:50 Eos # (Auto) 0.1 K/mm3 (0.0-0.4) 07/14/21 15:50 Baso # (Auto) 0.0 K/mm3 (0.0-0.1) 07/14/21 15:50 Seg Neutrophils % 60.1 % (40.0-70.0) 07/14/21 15:50 Seg Neutrophils # 1.9 K/mm3 (1.8-7.7) 07/14/21 15:50 Sodium 136 mmol/L (137-145) L 07/14/21 15:50 Potassium 4.9 mmol/L (3.6-5.0) 07/14/21 15:50 Chloride 93.9 mmol/L (98-107) L 07/14/21 15:50 Carbon Dioxide 28 mmol/L (22-30) 07/14/21 15:50 Anion Gap 19 mmol/L 07/14/21 15:50 BUN 12 mg/dL (7-17) 07/14/21 15:50 Creatinine 0.7 mg/dL (0.6-1.2) 07/14/21 15:50 Estimated GFR > 60 ml/min 07/14/21 15:50 BUN/Creatinine Ratio 17 % 07/14/21 15:50 Glucose 90 mg/dL (65-100) 07/14/21 15:50 Calcium 9.9 mg/dL (8.4-10.2) 07/14/21 15:50 Total Bilirubin 0.20 mg/dL (0.1-1.2) 07/14/21 15:50 AST 15 units/L (5-40) 07/14/21 15:50 ALT 7 units/L (7-56) 07/14/21 15:50 Alkaline Phosphatase 62 units/L (35-129) 07/14/21 15:50 Total Creatine Kinase 46 units/L (30-135) 07/14/21 15:50 CK-MB (CK-2) 2.0 ng/mL (0.0-4.0) 07/14/21 15:50 CK-MB (CK-2) Rel Index 4.3 (0-4) H 07/14/21 15:50 Troponin T < 0.010 ng/mL (0.00-0.029) 07/14/21 15:50 NT-Pro-B Natriuret Pep 102.6 pg/mL (0-900) 07/14/21 15:50 Total Protein 7.8 g/dL (6.3-8.2) 07/14/21 15:50 Albumin 4.3 g/dL (3.9-5) 07/14/21 15:50 Albumin/Globulin Ratio 1.2 % 07/14/21 15:50 - Imaging and Cardiology Chest x-ray: report reviewed CT scan - chest: report reviewed Imaging and Cardiology: Chest x-ray No acute findings CT of the chest Labs evaluate intrathoracic stomach Small areas of interstitial nodularity and interstitial density Right middle lobe. These findings appear similar and unchanged since January 2021. A follow-up in 6 months to 1 year could be performed today to document stability of nodules. No focal consolidation. 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 Patient is fully followed. Patient acknowledged understanding and agreement with care plan. +30 minutes.,
[2021-07-14] MEDS ORDERED: ALBUTEROL 8.5 GM MDI INHALATION IH PRN (22:11)
[2021-07-14] MEDS ORDERED: ONDANSETRON 4 MG/2 ML INJ IV PRN (22:13)
[2021-07-14] MEDS ORDERED: oxyCODONE /ACETAMINOPHEN 5-325MG TAB PO PRN (22:13)
[2021-07-14] MEDS ORDERED: METOCLOPRAMIDE 10 MG/2 ML INJ IV PRN (22:13)
[2021-07-14] MEDS ORDERED: ACETAMINOPHEN 325 MG TAB PO PRN (22:13)
[2021-07-14] MEDS ORDERED: IPRATROPIUM/ALBUTEROL SULFATE 3 ML AMPUL.NEB IH PRN (22:19)
--- NOTE | 2021-07-14 23:13 | Cat Scan Report ---
CT CHEST WITH CONTRAST INDICATION / CLINICAL INFORMATION: Dyspnea. TECHNIQUE: Axial CT images were obtained through the chest after IV contrast. All CT scans at this location are performed using CT dose reduction for ALARA by means of automated exposure control. COMPARISON: 01/27/2021 FINDINGS: There is a small areas of interstitial nodularity and interstitial thickening within the lingula, rig ht middle lobe. A few these areas of mild rounded contour and density measuring up to 5 mm. There is a large hiatal hernia with intrathoracic stomach again noted. Atherosclerotic changes seen throughout the aorta and coronary vessels. No dominant adenopathy is seen. Visualized portions of the upper abd omen appear normal. IMPRESSION: 1. Large hiatal hernia with intrathoracic stomach. 2. Small areas of interstitial nodularity and interstitial density in the lingula and right middle lo be. These findings appear similar and unchanged since January 2021. A follow-up in 6 months to one julee de jesus could be performed to document stability of nodules. No focal consolidation. Signer Name: Luke Hayden MD Signed: 07/14/2021 11:08 PM Workstation Name: [id number]
[2021-07-15 05:20] LABS: Hematocrit 27.4 % (30.3-42.9); Hemoglobin 8.4 gm/dl (10.1-14.3); Mean Corpuscular HGB Conc 31 % (30-34); Mean Corpuscular Volume 90 fl (79-97); Platelet Count 253 K/mm3 (140-440); Red Blood Count 3.05 M/mm3 (3.65-5.03); Red Cell Distribution Width 15.9 % (13.2-15.2)
[2021-07-15 05:48] LABS: Alanine Aminotransferase 6 units/L (7-56); Albumin 4.2 g/dL (3.9-5); BUN/Creatinine Ratio 16; Blood Urea Nitrogen 11 mg/dL (7-17); Calcium 9.7 mg/dL (8.4-10.2); Hemolysis Index 0
[2021-07-15 06:50] LABS: Basophils % (Manual) 0 % (0.0-1.8); Total Cells Counted 100
[2021-07-15 06:51] LABS: Hypochromasia 2+; Platelet Estimate Consistent w Auto
--- NOTE | 2021-07-15 08:00 | Progress Note ---
Assessment and Plan Assessment and plan: -- Acute respiratory failure with hypoxia Current Visit: Yes Status: Acute Oxygen supplementation for now Possible effects of sarcoidosis Rule out CHF BNP is normal --Acute exacerbation of bronchial asthma; Continue supplemental oxygen, titrate O2 sats to more than 90% Nebulizers, IV steroids, inhalation steroids and supportive care --h/o Sarcoidosis Current Visit: Yes Status: Chronic Continue prednisone Pulmonary consult --Possible CHF (congestive heart failure) Current Visit: Yes Status: Chronic Patient has no history of CHF , no lung congestion , Normal proBNP , follow echocardiogram for ejection fraction And RV and LV functions Continue low-dose Lasix --Anemia Current Visit: Yes Status: Chronic No history of GI bleeding, check stool for occult blood Closely monitor H&H --DVT prophylaxis Current Visit: Yes Status: Acute On anticoagulation GI prophylaxis --Full CODE STATUS --Advance care planning Current Visit: Yes Status: Acute Disease education conducted, care plan discussed, diagnosis. Patient is fully followed. Patient acknowledged understanding and agreement with care plan. +30 minutes., Hospitalist Physical - Constitutional Vitals: Temp Pulse Resp BP Pulse Ox 98.7 F 74 16 158/71 99 07/14/21 18:44 07/15/21 07:01 07/15/21 07:01 07/15/21 07:01 07/15/21 07:01 General appearance: Present: mild distress, well-nourished HEART Score - HEART Score Troponin: Troponin T < 0.010 ng/mL (0.00-0.029) 07/14/21 15:50 Results - Labs CBC & Chem 7: 07/15/21 04:01 07/15/21 04:01 Labs: Laboratory Last Values WBC 3.4 K/mm3 (4.5-11.0) L 07/15/21 04:01 RBC 3.05 M/mm3 (3.65-5.03) L 07/15/21 04:01 Hgb 8.4 gm/dl (10.1-14.3) L 07/15/21 04:01 Hct 27.4 % (30.3-42.9) L 07/15/21 04:01 MCV 90 fl (79-97) 07/15/21 04:01 MCH 28 pg (28-32) 07/15/21 04:01 MCHC 31 % (30-34) 07/15/21 04:01 RDW 15.9 % (13.2-15.2) H 07/15/21 04:01 Plt Count 253 K/mm3 (140-440) 07/15/21 04:01 Lymph % (Auto) 22.7 % (13.4-35.0) 07/14/21 15:50 Marshall % (Auto) Plastics Nurse 07/15/21 04:01 Eos % (Auto) 2.7 % (0.0-4.3) 07/14/21 15:50 Baso % (Auto) 1.3 % (0.0-1.8) 07/14/21 15:50 Lymph # (Auto) 0.7 K/mm3 (1.2-5.4) L 07/14/21 15:50 [place] # (Auto) 0.4 K/mm3 (0.0-0.8) 07/14/21 15:50 Eos # (Auto) 0.1 K/mm3 (0.0-0.4) 07/14/21 15:50 Baso # (Auto) 0.0 K/mm3 (0.0-0.1) 07/14/21 15:50 Add Manual Diff Complete 07/15/21 04:01 Total Counted 100 07/15/21 04:01 Seg Neutrophils % 60.1 % (40.0-70.0) 07/14/21 15:50 Seg Neuts % (Manual) 69.0 % (40.0-70.0) 07/15/21 04:01 Band Neutrophils % 0 % 07/15/21 04:01 Lymphocytes % (Manual) 24.0 % (13.4-35.0) 07/15/21 04:01 Reactive Lymphs % (Man) 0 % 07/15/21 04:01 Monocytes % (Manual) 5.0 % (0.0-7.3) 07/15/21 04:01 Eosinophils % (Manual) 2.0 % (0.0-4.3) 07/15/21 04:01 Basophils % (Manual) 0 % (0.0-1.8) 07/15/21 04:01 Metamyelocytes % 0 % 07/15/21 04:01 Myelocytes % 0 % 07/15/21 04:01 Promyelocytes % 0 % 07/15/21 04:01 Blast Cells % 0 % 07/15/21 04:01 Nucleated RBC % Not Reportable 07/15/21 04:01 Seg Neutrophils # 1.9 K/mm3 (1.8-7.7) 07/14/21 15:50 Seg Neutrophils # Man 2.3 K/mm3 (1.8-7.7) 07/15/21 04:01 Band Neutrophils # 0.0 K/mm3 07/15/21 04:01 Lymphocytes # (Manual) 0.8 K/mm3 (1.2-5.4) L 07/15/21 04:01 Abs React Lymphs (Man) 0.0 K/mm3 07/15/21 04:01 Monocytes # (Manual) 0.2 K/mm3 (0.0-0.8) 07/15/21 04:01 Eosinophils # (Manual) 0.1 K/mm3 (0.0-0.4) 07/15/21 04:01 Basophils # (Manual) 0.0 K/mm3 (0.0-0.1) 07/15/21 04:01 Metamyelocytes # 0.0 K/mm3 07/15/21 04:01 Myelocytes # 0.0 K/mm3 07/15/21 04:01 Promyelocytes # 0.0 K/mm3 07/15/21 04:01 Blast Cells # 0.0 K/mm3 07/15/21 04:01 WBC Morphology Not Reportable 07/15/21 04:01 Hypersegmented Neuts Not Reportable 07/15/21 04:01 Hyposegmented Neuts Not Reportable 07/15/21 04:01 Hypogranular Neuts Not Reportable 07/15/21 04:01 Smudge Cells Not Reportable 07/15/21 04:01 Toxic Granulation Not Reportable 07/15/21 04:01 Toxic Vacuolation Not Reportable 07/15/21 04:01 Dohle Bodies Not Reportable 07/15/21 04:01 Pelger-Huet Anomaly Not Reportable 07/15/21 04:01 Thaddeus Rods Not Reportable 07/15/21 04:01 Platelet Estimate Consistent w auto 07/15/21 04:01 Clumped Platelets Not Reportable 07/15/21 04:01 Plt Clumps, EDTA Not Reportable 07/15/21 04:01 Large Platelets Not Reportable 07/15/21 04:01 Giant Platelets Not Reportable 07/15/21 04:01 Platelet Satelliting Not Reportable 07/15/21 04:01 Plt Morphology Comment Not Reportable 07/15/21 04:01 RBC Morphology Not Reportable 07/15/21 04:01 Dimorphic RBCs Not Reportable 07/15/21 04:01 Polychromasia Not Reportable 07/15/21 04:01 Hypochromasia 2+ 07/15/21 04:01 Poikilocytosis Not Reportable 07/15/21 04:01 Anisocytosis Not Reportable 07/15/21 04:01 Microcytosis Not Reportable 07/15/21 04:01 Macrocytosis Not Reportable 07/15/21 04:01 Spherocytes Not Reportable 07/15/21 04:01 Pappenheimer Bodies Not Reportable 07/15/21 04:01 Sickle Cells Not Reportable 07/15/21 04:01 Target Cells Not Reportable 07/15/21 04:01 Tear Drop Cells Not Reportable 07/15/21 04:01 Ovalocytes Not Reportable 07/15/21 04:01 Helmet Cells Not Reportable 07/15/21 04:01 Helm-[place]ie Bodies Not Reportable 07/15/21 04:01 [place] Rings Not Reportable 07/15/21 04:01 Sujatha Cells Not Reportable 07/15/21 04:01 Bite Cells Not Reportable 07/15/21 04:01 Crenated Cell Not Reportable 07/15/21 04:01 Elliptocytes Not Reportable 07/15/21 04:01 Acanthocytes (Spur) Not Reportable 07/15/21 04:01 Rouleaux Not Reportable 07/15/21 04:01 Hemoglobin C Crystals Not Reportable 07/15/21 04:01 Schistocytes Not Reportable 07/15/21 04:01 Malaria parasites Not Reportable 07/15/21 04:01 Liban Bodies Not Reportable 07/15/21 04:01 Hem Pathologist Commnt No 07/15/21 04:01 Sodium 136 mmol/L (137-145) L 07/15/21 04:01 Potassium 4.3 mmol/L (3.6-5.0) 07/15/21 04:01 Chloride 93.1 mmol/L (98-107) L 07/15/21 04:01 Carbon Dioxide 32 mmol/L (22-30) H 07/15/21 04:01 Anion Gap 15 mmol/L 07/15/21 04:01 BUN 11 mg/dL (7-17) 07/15/21 04:01 Creatinine 0.7 mg/dL (0.6-1.2) 07/15/21 04:01 Estimated GFR > 60 ml/min 07/15/21 04:01 BUN/Creatinine Ratio 16 % 07/15/21 04:01 Glucose 97 mg/dL (65-100) 07/15/21 04:01 Calcium 9.7 mg/dL (8.4-10.2) 07/15/21 04:01 Total Bilirubin 0.40 mg/dL (0.1-1.2) 07/15/21 04:01 AST 14 units/L (5-40) 07/15/21 04:01 ALT 6 units/L (7-56) L 07/15/21 04:01 Alkaline Phosphatase 60 units/L (35-129) 07/15/21 04:01 Total Creatine Kinase 46 units/L (30-135) 07/14/21 15:50 CK-MB (CK-2) 2.0 ng/mL (0.0-4.0) 07/14/21 15:50 CK-MB (CK-2) Rel Index 4.3 (0-4) H 07/14/21 15:50 Troponin T < 0.010 ng/mL (0.00-0.029) 07/14/21 15:50 NT-Pro-B Natriuret Pep 102.6 pg/mL (0-900) 07/14/21 15:50 Total Protein 7.5 g/dL (6.3-8.2) 07/15/21 04:01 Albumin 4.2 g/dL (3.9-5) 07/15/21 04:01 Albumin/Globulin Ratio 1.3 % 07/15/21 04:01 Active Medications - Current Medications Current Medications: Generic Name Dose Route Start Last Admin Trade Name Freq PRN Reason Stop Dose Admin Acetaminophen 650 mg 07/14/21 22:13 Acetaminophen 325 Mg Tab PO Q4H PRN Pain MILD(1-3)/Fever >100.5/GOETZ Albuterol 2 puff 07/14/21 22:11 Albuterol 8.5 Gm Mdi Inhalation IH BID PRN Shortness Of Breath Albuterol/Ipratropium 1 ampul 07/15/21 08:00 Ipratropium/Albuterol Sulfate 3 Ml Ampul.Neb IH QIDRT [facility] Amlodipine Besylate 10 mg 07/15/21 10:00 Amlodipine 10 Mg Tab PO DAILY [facility] Furosemide 40 mg 07/15/21 10:00 Furosemide 40 Mg/4 Ml Inj IV QDAY [facility] Heparin Sodium (Porcine) 5,000 unit 07/15/21 10:00 Heparin 5,000 Unit/1 Ml Vial SUB-Q Q12HR [facility] Losartan Potassium 50 mg 07/15/21 10:00 Losartan 50 Mg Tab PO DAILY [facility] Metoclopramide HCl 10 mg 07/14/21 22:13 Metoclopramide 10 Mg/2 Ml Inj IV Q6H PRN Nausea And Vomiting Miscellaneous Medication 4 mg 07/15/21 10:00 Fesoterodine Fumarate [Toviaz] PO DAILY [facility] Ondansetron HCl 4 mg 07/14/21 22:13 Ondansetron 4 Mg/2 Ml Inj IV Q8H PRN Nausea And Vomiting Oxycodone/Acetaminophen 1 tab 07/14/21 22:13 07/15/21 06:32 Oxycodone /Acetaminophen 5-325mg Tab PO 1 tab Q6H PRN Administration Pain, Moderate (4-6) Pantoprazole Sodium 40 mg 07/15/21 10:00 Pantoprazole 40 Mg Tab PO DAILY [facility] Potassium Chloride 20 meq 07/15/21 10:00 Potassium Chloride Er 20 Meq Tab PO QDAY [facility] Sodium Chloride 10 ml 07/15/21 10:00 Sodium Chloride 0.9% 10 Ml Flush Syringe IV BID [facility] Sodium Chloride 10 ml 07/14/21 22:13 Sodium Chloride 0.9% 10 Ml Flush Syringe IV PRN PRN LINE FLUSH
--- NOTE | 2021-07-15 08:59 | Electrocardiograph Report ---
[facility] Test Date: 2021-07-14 Test Time: 16:40:11 Pat Name: OSCAR CAM Department: Room: [place] [address] Gender: F Belt Brander: VIJAY : 1940 Requested By: MELIZA SCHERER Order Number: [id number] Reading MD: Ravindra Lepe Measurements Intervals [place] Rate: 81 P: 45 MD: 206 QRS: 29 QRSD: 75 T: 73 QT: 368 QTc: 427 Interpretive Statements Sinus rhythm No previous ECG available for comparison Electronically Signed On 07-15-2021 8:58:56 EST by Ravindra Lepe
--- NOTE | 2021-07-15 09:35 | Consultation ---
History of Present Illness Consult date: 07/15/21 Reason for consult: dyspnea History of present illness: 80 y/o female admitted for shortness of breath. Patient was seen in our office once by Dr. Rodriguez but failed to follow up. Per her report she has Sarcoid but no radiographic evidence of this on 2 CT's (yesterday and the one from January). Patient does have a large hiatal hernia with a large portion of the stomach in the thoracic cavity. Lung parenchyma are normal. Past History Past Medical History: GERD, hypertension, sarcoidosis (self reported) Medications and Allergies Allergies Allergy/AdvReac Type Severity Reaction Status Date / Time pentazocine [From Talwin] AdvReac Swelling Verified 11/24/18 12:39 Home Medications Medication Instructions Recorded Confirmed Last Taken Type Albuterol Mdi (or & Nicu Only) 2 puff IH BID PRN 11/24/18 11/24/18 Unknown History [ProAir HFA Inhaler] Fesoterodine Fumarate [Toviaz] 4 mg PO DAILY 11/24/18 11/24/18 Unknown History Losartan [Cozaar] 50 mg PO DAILY 11/24/18 11/24/18 Unknown History Pantoprazole [Protonix TAB] 40 mg PO DAILY 11/24/18 11/24/18 Unknown History Potassium Chloride [K-Dur] 10 meq PO DAILY 11/24/18 11/24/18 Unknown History amLODIPine 10 mg PO DAILY 11/24/18 11/24/18 Unknown History hydroCHLOROthiazide [HCTZ] 25 mg PO DAILY 11/24/18 11/24/18 Unknown History Albuterol Mdi (or & Nicu Only) 2 puff IH Q4HR PRN #1 inh 09/16/19 Unknown Rx [ProAir HFA Inhaler] Inhaler, Assist Devices [Space 1 each MC PRN PRN #1 spacer 09/16/19 Unknown Rx Chamber Plus] Prednisone [predniSONE 10 mg 10 mg PO .TAPER #1 tab.ds.pk 09/16/19 Unknown Rx (6-Day Pack, 21 Tabs)] Active Meds: Active Medications Acetaminophen (Acetaminophen 325 Mg Tab) 650 mg PO Q4H PRN PRN Reason: Pain MILD(1-3)/Fever >100.5/GOETZ Albuterol (Albuterol 8.5 Gm Mdi Inhalation) 2 puff IH BID PRN PRN Reason: Shortness Of Breath Albuterol/Ipratropium (Ipratropium/Albuterol Sulfate 3 Ml Ampul.Neb) 1 ampul IH QIDRT [facility] Amlodipine Besylate (Amlodipine 10 Mg Tab) 10 mg PO DAILY [facility] Furosemide (Furosemide 40 Mg/4 Ml Inj) 40 mg IV QDAY [facility] Heparin Sodium (Porcine) (Heparin 5,000 Unit/1 Ml Vial) 5,000 unit SUB-Q Q12HR [facility] Losartan Potassium (Losartan 50 Mg Tab) 50 mg PO DAILY [facility] Metoclopramide HCl (Metoclopramide 10 Mg/2 Ml Inj) 10 mg IV Q6H PRN PRN Reason: Nausea And Vomiting Miscellaneous Medication (Fesoterodine Fumarate [Toviaz]) 4 mg PO DAILY [facility] Ondansetron HCl (Ondansetron 4 Mg/2 Ml Inj) 4 mg IV Q8H PRN PRN Reason: Nausea And Vomiting Oxycodone/Acetaminophen (Oxycodone /Acetaminophen 5-325mg Tab) 1 tab PO Q6H PRN PRN Reason: Pain, Moderate (4-6) Last Admin: 07/15/21 06:32 Dose: 1 tab Pantoprazole Sodium (Pantoprazole 40 Mg Tab) 40 mg PO DAILY [facility] Potassium Chloride (Potassium Chloride Er 20 Meq Tab) 20 meq PO QDAY [facility] Sodium Chloride (Sodium Chloride 0.9% 10 Ml Flush Syringe) 10 ml IV BID [facility] Sodium Chloride (Sodium Chloride 0.9% 10 Ml Flush Syringe) 10 ml IV PRN PRN PRN Reason: LINE FLUSH Review of Systems All systems: negative Physical Examination Vital signs: Vital Signs Pulse Resp Pulse Ox 84 14 94 07/14/21 14:39 07/14/21 14:39 07/14/21 14:39 Results - Laboratory Findings CBC and BMP: 07/15/21 04:01 07/15/21 04:01 Abnormal lab findings: Abnormal Labs 07/14/21 07/14/21 07/15/21 15:50 15:50 04:01 WBC 3.2 L 3.4 L RBC 3.17 L 3.05 L Hgb 8.9 L 8.4 L Hct 28.3 L 27.4 L RDW 15.8 H 15.9 H [place] % (Auto) 13.2 H Lymph # (Auto) 0.7 L Lymphocytes # (Manual) 0.8 L Sodium 136 L Chloride 93.9 L Carbon Dioxide ALT CK-MB (CK-2) Rel Index 4.3 H 07/15/21 04:01 WBC RBC Hgb Hct RDW [place] % (Auto) Lymph # (Auto) Lymphocytes # (Manual) Sodium 136 L Chloride 93.1 L Carbon Dioxide 32 H ALT 6 L CK-MB (CK-2) Rel Index - Diagnostic Findings Chest x-ray: image reviewed CT scan - chest: image reviewed Assessment and Plan 80 y/o obese female with dyspnea and chronic respiratory failure 1. Needs 2D echo, despite normal BNP 2. Also needs thoracic surgery evaluation for large hernia, this could be causing shortness of breath and multiple ways 3. No radiographic evidence of Sarcoid on CT 4. Awaiting my office to send me records 5. Weight loss
[2021-07-15] MEDS ORDERED: amLODIPine 10 MG TAB PO SCH (10:00)
[2021-07-15] MEDS ORDERED: POTASSIUM CHLORIDE ER 20 MEQ TAB PO SCH (10:00)
[2021-07-15] MEDS ORDERED: POTASSIUM CHLORIDE ER 10 MEQ TAB PO SCH (10:00)
[2021-07-15] MEDS ORDERED: FESOTERODINE FUMARATE 4 MG PO SCH (10:00)
[2021-07-15] MEDS ORDERED: PANTOPRAZOLE 40 MG TAB PO SCH (10:00)
[2021-07-15] MEDS ORDERED: LOSARTAN 50 MG TAB PO SCH (10:00)
[2021-07-15] MEDS ORDERED: HEPARIN 5,000 UNIT/1 ML VIAL SUB-Q SCH (10:00)
[2021-07-15] MEDS ORDERED: FUROSEMIDE 40 MG/4 ML INJ IV SCH (10:00)
[2021-07-15] MEDS: IPRATROPIUM/ALBUTEROL SULFATE 3 ML AMPUL.NEB IH SCH ×2 (10:50→12:00)
--- NOTE | 2021-07-15 14:00 | Consultation ---
History of Present Illness Consult date: 07/15/21 Consult reason: shortness of breath History of present illness: The patient is a 80-year-old woman who presented with shortness of breath to the emergency room, evaluated and referred for admission. Cardiology consultation was requested for assessment of "congestive heart failure". The patient has no chest pain, no lower extremity edema, and no orthopnea. Her past medical history is notable for hypertension, chronic lung disease with sarcoidosis, which has required ambulatory oxygen over the past 6 to 8 months. She sees an outpatient darkroom technician Dr. Llanes, but for management of hypertension. EKG here on presentation is normal sinus rhythm with no ST or T wave changes of ischemia. Single troponin measurement so far was negative. Chest x-ray reveals normal-sized cardiac silhouette and clear lungs. The patient underwent a bedside echocardiogram today that reveals normal left ventricular systolic function with ejection fraction 60%, no significant valvular lesions demonstrated. Full echo report is pending. Past History Past Medical History: GERD, hypertension, sarcoidosis (self reported) Medications and Allergies Allergies Allergy/AdvReac Type Severity Reaction Status Date / Time pentazocine [From Talwin] AdvReac Swelling Verified 11/24/18 12:39 Home Medications Medication Instructions Recorded Confirmed Last Taken Type Albuterol Mdi (or & Nicu Only) 2 puff IH BID PRN 11/24/18 11/24/18 Unknown History [ProAir HFA Inhaler] Fesoterodine Fumarate [Toviaz] 4 mg PO DAILY 11/24/18 11/24/18 Unknown History Losartan [Cozaar] 50 mg PO DAILY 11/24/18 11/24/18 Unknown History Pantoprazole [Protonix TAB] 40 mg PO DAILY 11/24/18 11/24/18 Unknown History Potassium Chloride [K-Dur] 10 meq PO DAILY 11/24/18 11/24/18 Unknown History amLODIPine 10 mg PO DAILY 11/24/18 11/24/18 Unknown History hydroCHLOROthiazide [HCTZ] 25 mg PO DAILY 11/24/18 11/24/18 Unknown History Albuterol Mdi (or & Nicu Only) 2 puff IH Q4HR PRN #1 inh 09/16/19 Unknown Rx [ProAir HFA Inhaler] Inhaler, Assist Devices [Space 1 each MC PRN PRN #1 spacer 09/16/19 Unknown Rx Chamber Plus] Prednisone [predniSONE 10 mg 10 mg PO .TAPER #1 tab.ds.pk 09/16/19 Unknown Rx (6-Day Pack, 21 Tabs)] Active Meds: Active Medications Acetaminophen (Acetaminophen 325 Mg Tab) 650 mg PO Q4H PRN PRN Reason: Pain MILD(1-3)/Fever >100.5/GOETZ Albuterol (Albuterol 8.5 Gm Mdi Inhalation) 2 puff IH BID PRN PRN Reason: Shortness Of Breath Albuterol/Ipratropium (Ipratropium/Albuterol Sulfate 3 Ml Ampul.Neb) 1 ampul IH QIDRT [facility] Last Admin: 07/15/21 10:50 Dose: 1 ampul Amlodipine Besylate (Amlodipine 10 Mg Tab) 10 mg PO DAILY [facility] Last Admin: 07/15/21 10:53 Dose: Not Given Furosemide (Furosemide 40 Mg/4 Ml Inj) 40 mg IV QDAY [facility] Last Admin: 07/15/21 10:53 Dose: Not Given Heparin Sodium (Porcine) (Heparin 5,000 Unit/1 Ml Vial) 5,000 unit SUB-Q Q12HR [facility] Last Admin: 07/15/21 10:50 Dose: Not Given Losartan Potassium (Losartan 50 Mg Tab) 50 mg PO DAILY [facility] Last Admin: 07/15/21 10:50 Dose: Not Given Metoclopramide HCl (Metoclopramide 10 Mg/2 Ml Inj) 10 mg IV Q6H PRN PRN Reason: Nausea And Vomiting Miscellaneous Medication (Fesoterodine Fumarate [Toviaz]) 4 mg PO DAILY [facility] Last Admin: 07/15/21 10:52 Dose: Not Given Ondansetron HCl (Ondansetron 4 Mg/2 Ml Inj) 4 mg IV Q8H PRN PRN Reason: Nausea And Vomiting Oxycodone/Acetaminophen (Oxycodone /Acetaminophen 5-325mg Tab) 1 tab PO Q6H PRN PRN Reason: Pain, Moderate (4-6) Last Admin: 07/15/21 06:32 Dose: 1 tab Pantoprazole Sodium (Pantoprazole 40 Mg Tab) 40 mg PO DAILY [facility] Last Admin: 07/15/21 10:50 Dose: 40 mg Potassium Chloride (Potassium Chloride Er 20 Meq Tab) 20 meq PO QDAY [facility] Last Admin: 07/15/21 10:50 Dose: 20 meq Sodium Chloride (Sodium Chloride 0.9% 10 Ml Flush Syringe) 10 ml IV BID [facility] Last Admin: 07/15/21 10:54 Dose: 10 ml Sodium Chloride (Sodium Chloride 0.9% 10 Ml Flush Syringe) 10 ml IV PRN PRN PRN Reason: LINE FLUSH Review of Systems Cardiovascular: shortness of breath, no chest pain, no orthopnea, no palpitations, no rapid/irregular heart beat, no edema, no syncope, no lightheadedness Physical Examination Vital Signs Pulse Resp Pulse Ox 84 14 94 07/14/21 14:39 07/14/21 14:39 07/14/21 14:39 General appearance: no acute distress HEENT: Positive: PERRL Neck: Positive: neck supple Cardiac: Positive: Reg Rate and Rhythm Lungs: Positive: Decreased Breath Sounds Neuro: Positive: Grossly Intact Abdomen: Positive: Soft Female genitourinary: deferred Skin: Positive: Clear Extremities: Absent: edema Results 07/15/21 04:01 07/15/21 04:01 Cardiac Enzymes 07/14/21 07/15/21 Range/Units 15:50 04:01 AST 15 14 (5-40) units/L CK-MB (CK-2) 2.0 (0.0-4.0) ng/mL CBC 07/14/21 07/15/21 Range/Units 15:50 04:01 WBC 3.2 L 3.4 L (4.5-11.0) K/mm3 RBC 3.17 L 3.05 L (3.65-5.03) M/mm3 Hgb 8.9 L 8.4 L (10.1-14.3) gm/dl Hct 28.3 L 27.4 L (30.3-42.9) % Plt Count 251 253 (140-440) K/mm3 Lymph # (Auto) 0.7 L (1.2-5.4) K/mm3 [place] # (Auto) 0.4 (0.0-0.8) K/mm3 Eos # (Auto) 0.1 (0.0-0.4) K/mm3 Baso # (Auto) 0.0 (0.0-0.1) K/mm3 Comprehensive Metabolic Panel 07/14/21 07/15/21 Range/Units 15:50 04:01 Sodium 136 L 136 L (137-145) mmol/L Potassium 4.9 4.3 (3.6-5.0) mmol/L Chloride 93.9 L 93.1 L (98-107) mmol/L Carbon Dioxide 28 32 H (22-30) mmol/L BUN 12 11 (7-17) mg/dL Creatinine 0.7 0.7 (0.6-1.2) mg/dL Glucose 90 97 (65-100) mg/dL Calcium 9.9 9.7 (8.4-10.2) mg/dL AST 15 14 (5-40) units/L ALT 7 6 L (7-56) units/L Alkaline Phosphatase 62 60 (35-129) units/L Total Protein 7.8 7.5 (6.3-8.2) g/dL Albumin 4.3 4.2 (3.9-5) g/dL EKG interpretations - Telemetry EKG Rhythm: Sinus Rhythm Assessment and Plan - Patient Problems (1) Shortness of breath Current Visit: Yes Status: Acute Plan to address problem: Patient with a history of sarcoidosis on ambulatory oxygen, presents with shortness of breath. There is no orthopnea, there is no edema, chest x-ray shows clear lungs. ECG is normal, troponin is normal and echocardiogram shows normal left ventricular systolic function with ejection fraction 60%, no significant valvular abnormalities. There is no clinical or radiological evidence of heart failure as etiology of her current symptoms. In addition to work-up and management of the chronic lung disease, it would be prudent to order a COVID-19 test for further assessment.
[2021-07-15 15:26] VITALS: BP 140/74
--- NOTE | 2021-07-15 15:48 | Discharge Summary ---
Providers - Providers Date of Admission: 07/14/21 17:00 Date of discharge: 07/15/21 Attending physician: BARBER HARP 07/15/21 07:21 Consult to Physician [CONS] Routine Comment: Consulting Provider: ALEX COPELAND Physician Instructions: Reason For Exam: Acute respiratory failure with hypoxia, sarcoidosi 07/15/21 07:22 Consult to Physician [CONS] Routine Comment: Consulting Provider: POPEYE GUIDO Physician Instructions: Reason For Exam: CHF Primary care physician: ZACHARY LINDSEY Hospitalization Condition: Fair Hospital course: -- Acute respiratory failure with hypoxia Current Visit: Yes Status: Acute Oxygen supplementation for now Possible effects of sarcoidosis Rule out CHF BNP is normal --Acute exacerbation of bronchial asthma; Continue supplemental oxygen, titrate O2 sats to more than 90% Nebulizers, IV steroids, inhalation steroids and supportive care --h/o Sarcoidosis Current Visit: Yes Status: Chronic Continue prednisone Pulmonary consult --Possible CHF (congestive heart failure) Current Visit: Yes Status: Chronic Patient has no history of CHF , no lung congestion , Normal proBNP , follow echocardiogram for ejection fraction And RV and LV functions Continue low-dose Lasix --Anemia--obesity BMI 33.5--bilateral lower extremity edema; lymphedema Current Visit: Yes Status: Chronic No history of GI bleeding, check stool for occult blood Closely monitor H&H Disposition: 30 STILL A PATIENT Final Discharge Diagnosis (Prints w/discharge instructions): Acute hypoxic respiratory failure. On supplemental oxygen/patient has 2 L of home oxygen. Acute exacerbation of bronchial asthma/significantly improved. History of sarcoidosis. Anemia. Bilateral lower extremity edema/lymphedema. Possible CHF/echocardiogram normal no evidence of CHF. Obesity; BMI 33.5 Time spent for discharge: 35 min Exam - Constitutional Vitals: Temp Pulse Resp BP Pulse Ox 98.6 F 90 16 140/74 94 07/15/21 15:25 07/15/21 15:25 07/15/21 15:25 07/15/21 15:25 07/15/21 15:25 Plan Activity: advance as tolerated Diet: other (Cardiac diet) Additional Instructions: Continue home oxygen as before. If you have worsening symptoms contact MD or go to the nearest emergency room as needed. Follow your private pyrometer operator Dr. Llanes in 5 to 7 days. You need to see cardiothoracic surgeon, for further evaluation of your large hiatal hernia That may be causing your shortness of breath Follow up with: ZACHARY LINDSEY JR, MD [Primary Care Provider] - 7 Days EULA ADAIR MD [Staff Physician] - 7 Days
== END 2021-07-15 16:18 | disposition home or self-care (01) | DRG 189 ==
LOC: ED 14:32 → 4A 17:00
PROVIDERS: ADMIT Internal Medicine; ATTEND Internal Medicine
DX: J96.21 Acute and chronic respiratory failure with hypoxia (principal); J45.901 Unspecified asthma with (acute) exacerbation; D86.9 Sarcoidosis, unspecified; D64.9 Anemia, unspecified; Z20.822 Contact with and (suspected) exposure to COVID-19; I10 Essential (primary) hypertension; Z88.8 Allergy status to other drugs, medicaments and biological substances; K21.9 Gastro-esophageal reflux disease without esophagitis; Z96.641 Presence of right artificial hip joint; Z96.652 Presence of left artificial knee joint; Z90.710 Acquired absence of both cervix and uterus; Z79.899 Other long term (current) drug therapy; E66.9 Obesity, unspecified; Z68.33 Body mass index [BMI] 33.0-33.9, adult
CPT/HCPCS: 36415; 71045; 71260; 80053; 82550; 82553; 83880; 84484; 85007; 85025; 93005; 93010; 93306; G0378; J1940; Q9967; U0003